=== PATIENT | female | born 2000 | race Caucasian/White ===

== ENCOUNTER 2020-02-08 18:50 | Inpatient (IN) | payer OTHER, MEDICAID, SELFPAY ==
[2016-09-28 17:58] VITALS: BMI 21.3
[2020-02-08 19:46] VITALS: BP 112/83; PULSE 75; TEMP 38.4
[2020-02-08 19:47] VITALS: PULSE 77; O2SAT 99
[2020-02-08 20:00] VITALS: TEMP 36.9; TEMP 37.9; O2SAT 99
[2020-02-08 20:25] VITALS: BMI 26.2
[2020-02-08] MEDS: Lactated Ringers 1,000 ML 50 ML IV (20:25)
[2020-02-08] MEDS: Lactated Ringers 500 ML 999 ML IV (21:01)
[2020-02-08 21:04] LABS: Absolute Lymphocyte Count 2.32 X10^3/uL (0.83-4.51); Absolute Neutrophil Count 7.4 X10^3/uL (2.0-7.7); Basophil# 0.04 X10^3/uL; Basophil% 0.4 % (0-1); Eosinophil# 0.04 X10^3/uL; Eosinophils% 0.4 % (0-5); Hematocrit 30.2 % (37-47); Hemoglobin 9.8 g/dL (12.0-15.0); Lymphocyte # 2.32 X10^3/ul (4.0); Lymphocyte % 21.6 % (19-41); Mean Corp Hgb Conc 32.5 g/dL (32-36); Mean Corpuscular Volume 83.2 fL (81-99); Mean Platelet Vol. 8.7 fl (6.2-12.0); Monocyte# 0.88 X10^3/uL; Monocyte% 8.2 % (0-10); NRBC Flagged by Analyzer 0 % (0-5); Neutrophil # 7.38 X10^3/uL (2.7-7.7); Neutrophil % 68.7 % (47-70); Platelet Count 268 K/mm3 (150-450); RBC Distribution Width SD 41.4 fl (35.1-43.9); Red Blood Count 3.63 M/mm3 (4.2-5.4); White Blood Count 10.7 K/mm3 (4.4-11.0)
[2020-02-08] MEDS: miSOPROStol 25 MCG TABLET PO (21:23)
--- NOTE | 2020-02-08 22:22 | PCM.HP.OB ---
- Problem List (1) 41 weeks gestation of Status: Acute (2) Elective induction of labor planned Status: Acute (3) Anemia affecting Status: Acute Qualifiers: Trimester: third trimester Qualified Code(s): O99.013 - Anemia complicating , third trimester History Date of Admission: 02/08/20 Final JACKELINE: 02/02/20 Final JACKELINE Source: US <20 weeks Gestational age: 40 Weeks and 6 Days History of this : This is a 20 year-old, G [1], P [0], at 40.6 weeks gestational age presents for planned induction of labor due to postdates. Denies any loss of fluid, vaginal bleeding or contractions. Positive movement. has been uncomplicated to date. Allergies No Known Allergies Allergy (Verified 09/28/16 17:57) Home Medications: Home Medications Ferrous Sulfate [Iron] 325 mg PO BID 02/08/20 Vit,Calc76/Iron/Folic [Pnv 29-1 Tablet] 1 ea PO DAILY 02/08/20 Smoking Status: Never smoker Alcohol: None Number of Fetus(es): 1 NST - FHR Rate Baby A Baseline: 140 Variability:: Moderate Accelerations:: 15 x 15 Decelerations:: None NST Reactive:: Yes Uterine Activity:: irritability History Past Pregnancies: Past Pregnancies Delivery Date Name GA/ Weeks Outcome Route Wt Infant Sex Labor Length Anesthesia Delivery Location Provider FOB Labs: Patient is O+ Rubella - immune HB- negative RPR- NR HIV-NR GC/C- negative GBS- negative Review of Systems Constitutional: Denies: Chills, Fever Eyes: Denies: Blurred vision Cardiovascular: Denies: Chest Pain Respiratory: Denies: Cough Neurological: Denies: Blurred vision, Headaches Hematologic/ Lymphatic: Reports: Anemia Physical Exam Vitals: Vital Signs Temp Pulse BP Pulse Ox 98.5 F 77 112/83 H 99 02/08/20 20:00 02/08/20 19:47 02/08/20 19:46 02/08/20 20:00 General: Alert Cardiovascular: Regular rate Lungs: Normal air movement Abdomen: Soft, Non Tender Neurological: Cranial nerves II-XII grossly intact Estimated gestational size: Appropriate for gestational size Presentation: Cephalic Cervix Dilation (cm): 1 Station: -3 Effacement (%): 60 Assessment/Plan All Active Problems 41 weeks gestation of (Acute) Elective induction of labor planned (Acute) Anemia affecting (Acute) This is a 20 year-old, G [1], P [0], at 40.6 weeks gestation for induction of labor - Admit to L&D - Start Cytotec 25mcg. PO every 4 hours - Continuous EFM and TOCO -Continue to monitor closely Dr. Villarreal present and agrees with plan of care.
[2020-02-08 22:33] VITALS: BP 108/71; PULSE 77; TEMP 36.5
[2020-02-09] VITALS (32 sets, daily range): BP systolic 99–113; BP diastolic 54–79; PULSE 74–108; TEMP 36.2–37.3; O2SAT 98–100
[2020-02-09] MEDS: miSOPROStol 25 MCG TABLET PO ×2 (01:37→05:38)
[2020-02-09] MEDS: 0.9% Normal Saline Single 100 ML IV.SOLN. IY (07:12)
--- NOTE | 2020-02-09 07:23 | PCM.PN.OB ---
Patient Problems: Active and Suspected Problems 41 weeks gestation of (Acute) Elective induction of labor planned (Acute) Anemia affecting (Acute) Subjective: Patient resting comfortably at this time. Denies any pain. Denies feeling contractions. Objective: Dose #3 of Cytotec 25mcg PO given. CE completed . Heredia bulb placed without difficulty and filled with 30 cc NS. Patient tolerated procedure well. - Physical Exam Vitals/I&O's: Vital Signs Temp Pulse BP Pulse Ox 99.1 F 74 105/76 99 02/09/20 07:15 02/09/20 07:15 02/09/20 07:15 02/08/20 20:00 Weight: 172 lb 6.424 oz Body Mass Index (BMI) 26.2 Intake and Output for Last 24 Hours 02/07/20 02/08/20 02/09/20 23:59 23:59 23:59 Intake Total 316.35 / 316.35 0 / 0 Balance 316.35 / 316.35 0 / 0 General: Alert, Oriented x3, Cooperative Lungs: Normal air movement Cardiovascular: Regular rate Abdomen: Soft, Non Tender Extremities: No Calf Tenderness Neurological: Cranial nerves II-XII grossly intact Psych/Mental Status: Normal Affect, Appropriate Laboratory Results 02/08/20 20:57: WBC 10.7, RBC 3.63 L, Hgb 9.8 L, Hct 30.2 L, MCV 83.2, MCH 27.0, MCHC 32.5, RDW Std Deviation 41.4, RDW Coeff of Myke 14.0, Plt Count 268, MPV 8.7, Immature Gran % (Auto) 0.700, Neut % (Auto) 68.7, Lymph % (Auto) 21.6, [place] % (Auto) 8.2, Eos % (Auto) 0.4, Baso % (Auto) 0.4, Absolute Neuts (auto) 7.4, Absolute Lymphs (auto) 2.32, Nucleated RBC % 0 02/08/20 20:57: Blood Type O POSITIVE, Antibody Screen NEGATIVE Current Medications Acetaminophen (Tylenol) 325 - 650 mg PO Q4H PRN PRN PRN Reason: Pain Score 1-3/10 Al Hydroxide/Mg Hydroxide (Mylanta Ii) 15 - 30 ml PO Q4H PRN PRN PRN Reason: INDIGESTION Citric Acid/Sodium Citrate (Bicitra) 30 ml PO X1 PRN PRN Reason: Section Fentanyl Citrate (Sublimaze (100mcg Ampule)) 25 - 50 mcg IV Q2H PRN PRN PRN Reason: Pain Score 4-10/10 Lactated Ringer's () 500 mls @ 999 mls/hr IV .Q31M PRN PRN Reason: Epidural Lactated Ringer's () 500 mls @ 999 mls/hr IV .Q31M PRN PRN Reason: Corrective Measures Last Infusion: 02/09/20 06:46 Dose: Infused Documented by: Lactated Ringer's () 1,000 mls @ 50 mls/hr IV .Q20H [facility] Last Admin: 02/08/20 20:25 Dose: 50 mls/hr Documented by: Misoprostol (Cytotec) 25 mcg PO Q4H [facility] Last Admin: 02/09/20 05:38 Dose: 25 mcg Documented by: Ondansetron HCl (Zofran) 4 mg IV Q4H PRN PRN PRN Reason: NAUSEA Prochlorperazine Edisylate (Compazine Iv) 10 mg IV Q6H PRN PRN PRN Reason: NAUSEA Sodium Chloride () 10 - 40 ml IV X1 PRN PRN Reason: SALINE FLUSH Medical Necessity - Tobacco Use Smoking Status: Never smoker Assessment/Plan All Active Problems 41 weeks gestation of (Acute) Elective induction of labor planned (Acute) Anemia affecting (Acute) Continuous EFM and TOCO Anticipate Heredia bulb coming out and will start IV Pitocin Nitrous oxide / Epidural when desires Anticipate
[2020-02-09] MEDS: Oxytocin 30 units/NS 500 ml 30 UNITS/500 ML IV.SOLN IV (10:20)
--- NOTE | 2020-02-09 15:11 | PCM.PN.BLA ---
Progress Note Patient denies feeling any contractions. Denies any pain. Has been walking around unit with tele monitor. - Category 1 tracing. CE- 4.5/70/-2. Bulging membranes during a contraction. -Pitocin at 12mu/min -Contractions palpate mild A/P AROM- Discussed Benefits/Risks/Alternatives and patient agrees with plan of care Continue to monitor EFM and TOCO Continue to titrate Pitocin Anticipate STROKE Vital Signs/Narrative: Vital Signs Temp Pulse BP Pulse Ox 02/09/20 14:52 98.3 F 81 108/69 02/09/20 13:35 98.2 F 91 99/64 98 02/09/20 12:36 97.2 F L 81 107/62 02/09/20 11:12 97.2 F L 96 110/71 99
[2020-02-09] MEDS: Lactated Ringers 1,000 ML 50 ML IV (16:05)
[2020-02-09] MEDS: Lactated Ringers 500 ML 999 ML IV (20:36)
[2020-02-09] MEDS: fentaNYL-bupivacaine (epidural) 100 ML BAG EPIDURAL (22:07)
[2020-02-10] VITALS (25 sets, daily range): BP systolic 97–127; BP diastolic 53–76; PULSE 75–104; RESP 16–18; TEMP 35.8–36.9; O2SAT 99–100
[2020-02-10] MEDS: Lactated Ringers 1,000 ML 200 ML IV ×2 (01:05→06:44)
[2020-02-10] MEDS: fentaNYL-bupivacaine (epidural) 100 ML BAG EPIDURAL (02:45)
[2020-02-10] MEDS: Ondansetron 4 MG/2 ML Vial IV (03:10)
--- NOTE | 2020-02-10 07:21 | PCM.PN.BLA ---
Progress Note Patient comfortable with epidural. Denies any pain. Category 1 tracing CE- 10/100/0 Pitocin 16mu/min A/P Patient to start pushing Continue management Anticipate Dr. Villarreal updated and agrees with plan STROKE Vital Signs/Narrative: Vital Signs Temp Pulse BP Pulse Ox 02/10/20 07:18 97.0 F L 77 106/58 L 100 02/10/20 06:11 104 H 99 02/10/20 06:06 97.3 F L 93 126/76 H 02/10/20 05:05 97.4 F L 81 110/56 L 02/10/20 04:03 75 102/64 02/10/20 03:58 97.3 F L 77 97/54 L
[2020-02-10] MEDS: Oxytocin 30 units/NS 500 ml 30 UNITS/500 ML IV.SOLN 334 UNITS IV (08:11)
--- NOTE | 2020-02-10 08:30 | PCM.OPRPT ---
Problem List (1) 41 weeks gestation of Status: Resolved (2) Elective induction of labor planned Status: Resolved (3) Anemia affecting Status: Resolved Qualifiers: Trimester: third trimester Qualified Code(s): O99.013 - Anemia complicating , third trimester (4) Vaginal delivery Status: Acute (5) First degree laceration of perineum during delivery, Status: Acute Report of Operation Date of Procedure: 02/10/20 Pre-Operative Diagnosis: Induction of labor, Term Post-Operative Diagnosis: Same, live male infant Surgery/Procedure Performed:: Vaginal Delivery Maternal Presentation: Medically Indicated Induction Method of Induction: Pitocin, Heredia Bulb, Amniotomy Medical Reason for Induction: Post term Amniotic Membrane Rupture Type: Artificial - Clear fluid Amniotic Fluid Description: Clear Final JACKELINE: 02/02/20 Final JACKELINE Source: US <20 weeks Gestational age: 41 Weeks and 1 Days Date of Procedure: 02/10/20 Pre-Operative Diagnosis: Induction of labor, term Post-Operative Diagnosis: Same, Live male infant Surgery/ Procedure Performed: Spontaneous Vaginal Delivery Type of Anesthesia: Epidural Description of Procedure: Patient progressed to complete dilation and felt urge to bear down. Good maternal pushing efforts delivered head over intact perineum. Gentle downward traction with delivery of anterior shoulder follwed by the rest of infant's body. Infant placed on maternal abdomen. Delayed cord clamping performed. Cord cut by FOB. remains vigorous and placed skin to skin with patient. Placenta delivered without difficulty and was intact. First-degree vaginal laceration repaired with 3-0 Rapide suture. Mom and baby bonding. Presentation: Vertex Placental Delivery Description: Spontaneous Placenta Disposition: [facility] Cord Vessel Description: 3 Vessels Cord Entanglement: None Estimated Blood Loss: 200 (1 minute): 9 (5 minute): 9 Laceration: 1st degree Medications given after delivery: IV Pitocin
[2020-02-10] MEDS: 0.9% Saline Lock 10 ML Syringe IV (10:53)
[2020-02-10] MEDS: Ferrous Sulfate 325 MG Tablet PO ×2 (11:19→17:52)
[2020-02-10] MEDS: Ibuprofen 600 MG Tablet PO (19:38)
[2020-02-11] VITALS (11 sets, daily range): BP systolic 94–122; BP diastolic 55–79; PULSE 80–92; RESP 15–18; TEMP 36.3–36.9
[2020-02-11] MEDS: Ibuprofen 600 MG Tablet PO (07:32)
[2020-02-11] MEDS: Ferrous Sulfate 325 MG Tablet PO ×2 (12:04→18:25)
--- NOTE | 2020-02-11 13:00 | PCM.PN.OB ---
Patient Problems: Active and Suspected Problems Vaginal delivery (Acute) First degree laceration of perineum during delivery, (Acute) Subjective: Doing well per patient and nursing staff. Ambulating and taking PO without difficulty. Voiding and passing flatus. with some difficulty, working with nursing and . Denies chest pain, shortness of breath, leg pain, increased vaginal bleeding or clots. Would like discharge home today. - Physical Exam Vitals/I&O's: Vital Signs Temp Pulse Resp BP Pulse Ox 98.4 F 84 15 105/60 100 02/11/20 07:40 02/11/20 11:49 02/11/20 07:40 02/11/20 11:49 02/10/20 08:25 Oxygen Delivery Method Room Air Weight: 172 lb 6.424 oz Body Mass Index (BMI) 26.2 Intake and Output for Last 24 Hours 02/09/20 02/10/20 02/11/20 23:59 23:59 23:59 Intake Total 2604.20 / 2604.20 2968.34 / 2968.34 Output Total 1300 / 1300 2400 / 2400 Balance 1304.20 / 1304.20 568.34 / 568.34 General: Alert, Oriented x3, Cooperative HEENT: Atraumatic, Normocephalic Neck: Trachea Midline Lungs: Clear to auscultation, Normal air movement, No rhonchi, No wheeze Cardiovascular: Regular rate, Regular Rhythm, No murmurs Abdomen: Bowel Sounds Present, Soft, Non Tender - fundus firm 2 below U Extremities: No edema Psych/Mental Status: Normal Affect, Appropriate Current Medications Acetaminophen (Tylenol) 1,000 mg PO Q8H PRN PRN PRN Reason: Pain Score 1-3/10 Bisacodyl (Dulcolax) 10 mg RECTAL UD PRN PRN Reason: If no BM Dibucaine (Dibucaine) 1 applic TOPICAL TID PRN PRN; Protocol PRN Reason: Discomfort Ferrous Sulfate (Ferrous Sulfate) 325 mg PO 1200,1700 ROSALIE Last Admin: 02/11/20 12:04 Dose: 325 mg Documented by: Hydrocortisone (Hytone) 1 applic TOPICAL TID PRN PRN; Protocol PRN Reason: Discomfort Ibuprofen (Motrin) 600 mg PO Q6H PRN PRN PRN Reason: Pain Score 1-3/10 Last Admin: 02/11/20 07:32 Dose: 600 mg Documented by: Methylergonovine Maleate (Methergine) 0.2 mg IM X1 PRN PRN Reason: Excess bleeding/uterine atony Ondansetron HCl (Zofran) 4 mg IV Q4H PRN PRN PRN Reason: Nausea Senna/Docusate Sodium (Senokot-S, Bere-Colace) 1 - 2 tablet PO DAILY PRN PRN PRN Reason: Constipation Simethicone (Mylicon) 80 mg PO PCHS PRN PRN Reason: Indigestion/Stomach pain Sodium Chloride () 5 - 15 ml IV UD PRN PRN Reason: SALINE FLUSH Last Admin: 02/10/20 10:53 Dose: 10 ml Documented by: Medical Necessity - Tobacco Use Smoking Status: Never smoker Assessment/Plan All Active Problems 41 weeks gestation of (Resolved) Elective induction of labor planned (Resolved) Anemia affecting (Resolved) Vaginal delivery (Acute) First degree laceration of perineum during delivery, (Acute) A: PPD #1 Acute blood loss anemia P: 1) Routine instructions. 2) Working with for . If not improved, would recommend staying another day with discharge tomorrow. 3) Ferrous sulfate 325mg PO BID for anemia 4) Follow up in 2 weeks virtual visit and 6 week follow up 5) Discharge home
--- NOTE | 2020-02-11 13:13 | DCINST_ITS ---
Discharge Diet: No Restrictions Discharge Activity: Return to Normal Activity, No Restrictions, May not drive while taking narcotic pain medications., May Shower, May Take a Tub Bath May resume sexual activity in: 4-6 weeks Weight Bearing Status: Full weight bearing Call your doctor if your incision/area has: Continuous Slow Oozing, Sudden Increased Bleeding, Increased Pain/ Swelling, Increased Redness, Foul Smelling Discharge Call your doctor if you observe: Fever of 101 or Higher, Change in Color, Inability to urinate, Inability to have a bowel movement, Using more than one pad per hour, Shortness of breath, Chest pain, Increased palpitations (irregular heartbeat), Calf discomfort, Uncontrolled pain Additional Instructions: If you experience any of the following, contact your healthcare provider. * Bleeding that soaks a pad every hour for 2 hours * Fever 100.4 or higher * Unrelieved incision or abdominal pain * Swelling, redness, discharge or bleeding from your incision or e pisiotomy site * Your incision begins to separate * Problems urinating (including inability to urinate or burning while urinating). * Visual changes * Severe headache * Flu-like symptoms * Pain or redness in one of both of your breasts * Pain, warmth, tenderness or swelling in your legs, especially the calf area * Frequent nausea and vomiting * Symptoms of depression or anxiety If you experience any of the following, call 911 or go to the nearest Emergency Room. * Chest pain * Problems breathing * Seizure activity * Partial or complete paralysis of a body part, slurred speech, weakness or drooping of the face, or a sudden inability to walk or hold your balance Allergies/Adverse Reactions: Allergies No Known Allergies Allergy (Verified 09/28/16 17:57) Medications to take at Discharge Ferrous Sulfate [Iron] 325 mg PO BID 02/08/20 Vit,Calc76/Iron/Folic [Pnv 29-1 Tablet] 1 ea PO DAILY 02/08/20 Acetaminophen [Tylenol] 1,000 mg PO Q8H PRN PRN tablet 02/11/20 Ibuprofen [Motrin] 600 mg PO Q6H PRN PRN tablet 02/11/20 Please Follow Up With: Karly Stout CNM When: Call to make an appointment with your doctor in 2 weeks for virtual visit and 6 weeks for visit. Primary Care Physician: Care Physician,No Primary [Primary Care Provider] - Test Results: Test results from this visit will be discussed in further detail at your follow- up appointment, if applicable.
== END 2020-02-11 21:30 | disposition home or self-care (01) | DRG 807 ==
PROVIDERS: Admitting Provider Advanced Practice Midwife; Referring Provider Advanced Practice Midwife; Visit Provider Advanced Practice Midwife
DX: O48.0 Post-term pregnancy (principal); Z37.0 Single live birth; Z3A.41 41 weeks gestation of pregnancy; O70.0 First degree perineal laceration during delivery; O99.02 Anemia complicating childbirth
CPT/HCPCS: 59025; 59050; 85025; 86850; 86900; 86901; 99218; J7120; A4216; G0378; J2405

== ENCOUNTER 2023-02-03 07:02 | Inpatient (IN) | payer OTHER, MEDICAID, SELFPAY ==
[2023-02-03] VITALS (44 sets, daily range): BP systolic 92–133; BP diastolic 52–80; PULSE 69–97; TEMP 36.3–36.7; O2SAT 94–100; BMI 28.6
[2023-02-03] MEDS: Lactated Ringers 1,000 ML 50 ML IV (07:45)
[2023-02-03] MEDS: 0.9% Normal Saline Single 100 ML IV.SOLN. INTRA-UTER (08:00)
--- NOTE | 2023-02-03 08:20 | PCM.HP.OB ---
HPI - General General Date of Admission: 02/03/23 Date of Service: 02/03/23 Chief Complaint: IOL HPI Narrative KIP HENRY, is a 23 F @ 39 weeks who presents for elective IOL - h/o 2 vessel cord PFSH PFSH Home Medications ferrous sulfate 325 mg (65 mg iron) tablet 325 mg PO QODAY Check with primary doctor 02/08/20 [History Last Taken 02/01/23 08:00 325 mg] vitamin no.76-iron,carbonyl 29 mg iron-folic acid 1 mg tablet 1 ea PO DAILY 02/08/20 [History Last Taken 02/08/20 10:00 1] acetaminophen 500 mg tablet 1,000 mg PO Q8H PRN PRN Pain Score 1-01/2802/11/20 [Rx Last Taken Unknown] ibuprofen 600 mg tablet 600 mg PO Q6H PRN PRN Pain Score 1-302/11/20 [Rx Last Taken Unknown] Allergy/AdvReac Type Severity Reaction Status Date / Time No Known Allergies Allergy Verified 02/03/23 08:07 Social History Smoking Status: Never smoker History Elective abortions Hx Para 1 Spontaneous abortions Hx # Term Pregnancies Ectopic pregnancies Hx # Pregnancies Multiple births # of living children NST FHR Rate Baby A Baseline: 140 Variability:: Moderate Accelerations:: 15 x 15 Decelerations:: None NST Reactive:: Yes FHR Category:: Category I Uterine Activity:: irregular Vital Signs Vital Signs Vital Signs: 02/03/23 07:26 02/03/23 07:27 02/03/23 07:27 Temperature Temperature Source Temporal Pulse Rate 85 Blood Pressure 118/75 BP Systolic 118 BP Diastolic 75 02/03/23 07:26 Temperature 97.9 F Temperature Source Pulse Rate Blood Pressure BP Systolic BP Diastolic Weight Weight: 85.4 kg Body Mass Index (BMI) 28.6 Physical Exam Narrative VE: 1.5/60/-3 Transcervical saunders placed. Const alert and oriented x3 General Appearance: cooperative HEENT normocephalic GI GI Narrative: Gravid, non tender to palpation. OB / External & Speculum: external exam normal Extremity normal to inspection Skin no rashes or lesions noted Neuro oriented x3 and CN's II-XII intact bilaterally Psych Appearance: grossly normal Labs Labs Labs: Blood Type O POSITIVE Antibody Screen NEGATIVE Hct 30.2 % (37-47) L Hgb 9.8 g/dL (12.0-15.0) L Syphilis Total Ab Pending Rhogam given: No Assessment & Plan (1) Elective induction of labor planned: (2) Anemia affecting : QUALIFIERS: Trimester: third trimester Qualified Code(s): O99.013 - Anemia complicating , third trimester PLAN: Plan Admit to L&D- elective IOL 39 weeks- 2 vessel cord Montior FHR/TOCO Epidural if requested for pain Monitor VS Anticipate Pit and nicky
[2023-02-03] MEDS: Oxytocin 15 Units/NS 250ml 15 UNITS/250 ML IV.SOLN 2 UNITS IV (08:26)
[2023-02-03 08:54] LABS: Absolute Lymphocyte Count 1.36 X10^3/uL (0.83-4.51); Absolute Neutrophil Count 6.7 X10^3/uL (2.0-7.7); Basophil# 0.04 X10^3/uL; Basophil% 0.5 % (0-1); Differential Indicated SCAN CRITERIA MET; Eosinophil# 0.03 X10^3/uL; Eosinophils% 0.3 % (0-5); Hematocrit 30.5 % (37-47); Hemoglobin 9.9 g/dL (12.0-15.0); Lymphocyte # 1.36 X10^3/ul (0.83-4.51); Lymphocyte % 15.5 % (19-41); Mean Corp Hgb Conc 32.5 g/dL (32-36); Mean Corpuscular Hgb 28.8 pg (27.0-32.0); Mean Corpuscular Volume 88.7 fL (81-99); Mean Platelet Vol. 8.6 fl (6.2-12.0); Monocyte# 0.61 X10^3/uL; Monocyte% 6.9 % (0-10); NRBC Flagged by Analyzer 0 % (0-5); Neutrophil # 6.65 X10^3/uL (2.7-7.7); Neutrophil % 75.8 % (47-70); POSITIVE MORPHOLOGY YES; Platelet Count 186 K/mm3 (150-450); RBC Distribution Width CV 20.4 % (11.6-14.6); RBC Distribution Width SD 64.5 fl (35.1-43.9); Red Blood Count 3.44 M/mm3 (4.2-5.4); White Blood Count 8.8 K/mm3 (4.4-11.0)
[2023-02-03 09:05] LABS: Syphilis Antibodies Non-reactive
[2023-02-03 09:19] LABS: Anisocytosis 1+
--- NOTE | 2023-02-03 12:18 | PCM.PN.BLA ---
Progress Note Patient seen at bedside, doing well. Vaginal exam performed and AROM performed copious amount of clear fluid. She was 3-4/70/-2 continue with Pitocin. Patient can have an epidural when she wants it. heart rate remains category 1 reactive.
[2023-02-03] MEDS: LACTATED RINGERS 500 ML 999 ML IV (13:00)
[2023-02-03] MEDS: fentaNYL-bupivacaine (epidural) 100 ML BAG EPIDURAL (14:27)
[2023-02-03] MEDS: Lactated Ringers 1,000 ML 200 ML IV (15:44)
--- NOTE | 2023-02-03 19:15 | EX.PCM.OBRPT ---
Maternal Data Information Final JACKELINE: 02/10/23 Final JACKELINE Source: US <20 weeks Gestational age: 39 Vaginal Delivery Operative Information Date of Procedure: 02/03/23 Pre-Operative Diagnosis: 39 weeks, 2 vessel cord, Elective IOL Post-Operative Diagnosis: same, live female infant Surgery / Procedure Performed: Spontaneous Vaginal Delivery Type of Anesthesia: Epidural Drain: Heredia to straight drain Estimated Blood Loss: 200 Time of Delivery: 19:01 Findings Description of Procedure: Patient progressed to complete. Good maternal pushing efforts delivered the 's head followed by gentle downward traction to deliver the anterior shoulder followed by the rest the 's body. The was then placed on the mother's chest for immediate skin to skin. Delayed cord clamping for 1 minute was performed. Cord blood was obtained. The placenta was then delivered intact without complication. No vaginal or perineal lacerations were appreciated. Fundus was firm good hemostasis. Presentation: Vertex Amniotic Membrane Rupture Type: Artificial Amniotic Fluid Description: Clear Placental Delivery Description: Expressed Placenta Disposition: [facility] Specimen(s) Removed: placenta Cord Vessel Description: 2 Vessels Cord Entanglement: None A Gender: Female (1 minute): 9 (5 minute): 10 Delayed Cord Clamping: Yes Post Vaginal Delivery Medications Given After Delivery: IV Pitocin Episiotomy Description: None Laceration: None Complication Complications: None
[2023-02-03] MEDS: Oxytocin 15 Units/NS 250ml 15 UNITS/250 ML IV.SOLN 83 UNITS IV (19:31)
[2023-02-04 00:30] VITALS: BP 108/63; PULSE 83; RESP 18; TEMP 36.6
[2023-02-04 04:21] VITALS: BP 115/76; PULSE 79; RESP 16; TEMP 36.1
[2023-02-04] MEDS: Acetaminophen 500 MG Tablet 1000 MG PO (06:21)
[2023-02-04 08:10] VITALS: BP 124/63; PULSE 81; RESP 16; TEMP 36.3
--- NOTE | 2023-02-04 08:39 | PCM.PN.OB ---
Subjective Subjective Patient seen at bedside. Feeling good. Denies any pain. Ambulating and voiding without difficulty. Bottle feeding. Desires discharge home after 24 hours. Objective Data Objective Data Vital Signs: Vital Signs Temp Pulse Resp BP Pulse Ox O2 Del Method 97.3 F L 81 16 124/63 H 100 Room Air 02/04/23 08:10 02/04/23 08:10 02/04/23 08:10 02/04/23 08:10 02/03/23 18:02 02/04/23 08:10 Oxygen Delivery Method Room Air Weight: 188 lb 4.396 oz Body Mass Index (BMI) 28.6 Intake & Output: Intake and Output for Last 24 Hours 02/02/23 02/03/23 02/04/23 23:59 23:59 23:59 Intake Total 2635.83 / 2635.83 Output Total 1300 / 1300 900 / 900 Balance 1335.83 / 1335.83 -900 / -900 Lab / Micro Data Result Diagrams: 02/03/23 08:40 Labs: Laboratory Results - last 24 hr 02/03/23 07:45: Blood Type O POSITIVE, Antibody Screen NEGATIVE 02/03/23 07:45: Syphilis Total Ab Non-reactive 02/03/23 08:40: WBC 8.8, RBC 3.44 L, Hgb 9.9 L, Hct 30.5 L, MCV 88.7, MCH 28.8, MCHC 32.5, RDW Std Deviation 64.5 H, RDW Coeff of Myke 20.4 H, Plt Count 186, MPV 8.6, Immature Gran % (Auto) 1.000 H, Neut % (Auto) 75.8 H, Lymph % (Auto) 15.5 L, [place] % (Auto) 6.9, Eos % (Auto) 0.3, Baso % (Auto) 0.5, Absolute Neuts (auto) 6.7, Absolute Lymphs (auto) 1.36, Nucleated RBC % 0, Anisocytosis 1+ ROS Eyes Eyes: Denies blurry vision, change in vision or spots in vision ENT HEENT: Denies dizziness or headache(s) Cardiovascular Cardiovascular: Denies abdominal pain, chest pain or dyspnea Respiratory/Chest Respiratory/Chest: Denies cough, dyspnea, shortness of breath at rest or shortness of breath with exertion Gastrointestinal Gastrointestinal: Denies abdominal pain, diarrhea or vomiting Genitourinary Genitourinary: Denies change in urinary stream, difficulty urinating or dysuria Musculoskeletal Musculoskeletal: Reports none Integumentary Integumentary: Denies rash Neurologic Neurologic: Denies dizziness, headache(s), memory loss or weakness Physical Exam Narrative VE: 1.5/60/-3 Transcervical saunders placed. Const alert and oriented x3 General Appearance: cooperative HEENT normocephalic GI GI Narrative: Gravid, non tender to palpation. OB / External & Speculum: external exam normal Extremity normal to inspection Skin no rashes or lesions noted Neuro oriented x3 and CN's II-XII intact bilaterally Psych Appearance: grossly normal Assessment & Plan (1) Vaginal delivery: PLAN: Plan PPD 1 Routine care Continue oral iron supplementation Pain control D/C home after 24 hours with follow up in office
--- NOTE | 2023-02-04 08:42 | DCINST_ITS ---
Discharge Instructions Diet Discharge Diet: No restrictions Activity Discharge Activity: Return to Normal Activity, May Shower and May Take a Tub Bath May resume sexual activity in: 4-6 weeks Weight Bearing Status: Weight bearing as tolerated Dressing / Incision Call your doctor if you observe: Inability to urinate, Using more than 1 pad per hour, Shortness of breath, Dizziness, Swelling in the ankles, Chest pain, Calf discomfort and Uncontrolled pain Follow Up Care When: Within 10 days Test Results: Test results from this visit will be discussed in further detail at your follow- up appointment, if applicable. Discharge Plan Admission Admit Date/Time: 02/03/23 07:02 Primary Reason for Your Visit: Labor and Delivery Attending Provider: Maureen Newell Primary Care Provider: Sonia Carter Primary Discharge Orders/Prescriptions Prescriptions: Continued ferrous sulfate 325 MG tablet 325 mg PO QODAY vit,[id number] 1 EACH tablet 1 ea PO DAILY acetaminophen 500 MG tablet 1,000 mg PO Q8H PRN PRN (Reason: Pain Score 1-3/10) 0RF ibuprofen 600 MG tablet 600 mg PO Q6H PRN PRN (Reason: Pain Score 1-3/10) 0RF Referrals / Follow Up: Care Physician,No Primary [Primary Care Provider] - Disposition Disposition (needs filled in before D/C Order can be placed): Home, Self Care
[2023-02-04 13:14] VITALS: BP 110/63; PULSE 82; RESP 16; TEMP 36.3
[2023-02-04 17:04] VITALS: BP 110/69; PULSE 81; RESP 16; TEMP 36.6
== END 2023-02-04 19:45 | disposition home or self-care (01) | DRG 807 ==
PROVIDERS: Admitting Provider Obstetrics & Gynecology; Referring Provider Obstetrics & Gynecology; Visit Provider Obstetrics & Gynecology
DX: O69.89X0 Labor and delivery complicated by other cord complications, not applicable or unspecified (principal); Z37.0 Single live birth; O99.02 Anemia complicating childbirth; Z3A.39 39 weeks gestation of pregnancy
CPT/HCPCS: 59025; 59050; 85025; 86780; 86850; 86900; 86901; 99221; J7120; G0378